=== PATIENT | female | born 1970 | race Caucasian/White ===

== ENCOUNTER 2018-04-16 12:16 | Emergency (ER) | payer OTHER ==
[~2018-04-16] VITALS: Ht 165.1 cm; Wt 94.8 kg
[2018-04-16] MEDS ORDERED: PRILOSEC 10MG C10 MG PO (12:26)
[2018-04-16 12:40] LABS: ABSOLUTE EOSINOPHILS 0.1 thou/uL (0.0-0.7); ABSOLUTE LYMPHOCYTES 1.4 thou/uL (0.8-5.3); ABSOLUTE MONOCYTES 0.7 thou/uL (0.0-1.2); ABSOLUTE NEUTROPHILS 4.7 thou/uL (1.6-8.1); BASOPHILS 0.5 %; HEMATOCRIT 44.1 % (37.0-47.0); HEMOGLOBIN 15.6 gm/dL (12.0-15.0); LYMPHOCYTES 19.7 %; MCH 30.2 pg (26.0-34.0); MCHC 35.3 g/dL (28.0-37.0); MCV 85.7 fL (80.0-100.0); MONOCYTES 10.3 %; MPV 8.4 fl. (7.2-11.1); NUCLEATED RBCS 0 /100WBC; PLATELET COUNT* 217 thou/uL (150-400); POLYS 68.5 %; RBC 5.15 mil/uL (4.20-5.00); RDW-CV 13.6 % (10.5-14.5); WBC 6.9 thou/uL (4.0-11.0)
[2018-04-16 12:43] LABS: URINE BLOOD 1+ (Negative); URINE CLARITY CLEAR; URINE COLOR YELLOW; URINE GLUCOSE-RANDOM NEGATIVE (Negative); URINE KETONES NEGATIVE (Negative); URINE LEUKOCYTES-REFLEX NEGATIVE (Negative); URINE NITRITE-REFLEX NEGATIVE (Negative); URINE PROTEIN TRACE (Negative); URINE SPECIFIC GRAVITY >= 1.030 (1.005-1.030); URINE UROBILINOGEN 0.2 E.U./dl (0.2-1.0)
[2018-04-16 12:47] LABS: ICTOTEST (BILI CONFIRMATORY) Negative (Negative); URINE BILIRUBIN 1+ (Negative)
[2018-04-16 12:48] LABS: CALCIUM 8.9 mg/dL (8.5-10.1); CREATININE 0.7 mg/dL (0.6-1.3); POTASSIUM 3.2 mmol/L (3.5-5.1)
[2018-04-16 12:52] LABS: BACTERIA-REFLEX None Seen /HPF (None Seen); CASTS None Seen /LPF (None Seen); CRYSTALS None Seen /LPF (None Seen); MUCUS 0-3 Light strn/LPF (None Seen); SQUAMOUS 4-10 Moderate /LPF (0-3); URINE RBC 3-10 Few /HPF (0-2); URINE WBC-REFLEX None Seen /HPF (0-5)
[2018-04-16 12:52] LABS: ALBUMIN 4.1 g/dL (3.4-5.0); TOTAL PROTEIN 8.7 g/dL (6.4-8.2)
[2018-04-16] MEDS ORDERED: ZOFRAN ODT4 MG PO (14:29)
[2018-04-16] MEDS ORDERED: LOPERAMIDE 2 MG2 M1 PO (14:29)
[2018-04-16] MEDS ORDERED: HYDROCODONE-AP1 EAC6 PO (14:33)
[2018-04-16 14:43] VITALS: BP 128/73
== END 2018-04-16 14:43 | disposition home or self-care (01) ==
LOC: M.ERS 12:16
PROVIDERS: Physician Assistant
DX: R10.9 Unspecified abdominal pain (principal); Z90.49 Acquired absence of other specified parts of digestive tract; Z88.1 Allergy status to other antibiotic agents

== ENCOUNTER 2019-05-17 17:44 | Emergency (ER) | payer OTHER ==
[~2019-05-17] VITALS: Ht 165.1 cm; Wt 101.6 kg
[~2019-05-17 17:44] MED LIST: HYDROCODONE-AP1 EAC6 PO; LOPERAMIDE 2 MG2 M1 PO; PRILOSEC OTC20 MG PO; ZOFRAN ODT4 MG PO
[2019-05-17] MEDS ORDERED: NORCO 5-325 TA1 EAC1 PO (18:37)
[2019-05-17] MEDS ORDERED: IBUPROFEN 800800 MG PO (18:37)
[2019-05-17 19:17] VITALS: BP 145/70
== END 2019-05-17 19:17 | disposition home or self-care (01) ==
LOC: M.ERS 17:44
DX: S86.011A Strain of right Achilles tendon, initial encounter (principal); Z90.49 Acquired absence of other specified parts of digestive tract; X58.XXXA Exposure to other specified factors, initial encounter; Y93.02 Activity, running; Y92.828 Other wilderness area as the place of occurrence of the external cause; Y99.8 Other external cause status

== ENCOUNTER 2020-09-14 08:33 | Inpatient (IN) | payer OTHER ==
[~2020-09-14] VITALS: Ht 165.1 cm; Wt 103.4 kg
[~2020-09-14 08:33] MED LIST changes: +IBUPROFEN 800800 MG PO; +NORCO 5-325 TA1 EAC1 PO
[2020-09-14 08:49] VITALS: BP 141/69
[2020-09-14 09:51] LABS: ABSOLUTE LYMPHOCYTES 1.4 thou/uL (0.8-5.3); ABSOLUTE MONOCYTES 0.3 thou/uL (0.0-1.2); ABSOLUTE NEUTROPHILS 1.9 thou/uL (1.6-8.1); BASOPHILS 0.4 %; EOSINOPHILS 0.4 %; HEMOGLOBIN 13.7 gm/dL (12.0-15.0); MCH 29.3 pg (26.0-34.0); MCHC 34.2 g/dL (28.0-37.0); MCV 85.7 fL (80.0-100.0); MONOCYTES 7.9 %; NUCLEATED RBCS 0 /100WBC; PLATELET COUNT* 156 thou/uL (150-400); POLYS 53.3 %; RBC 4.68 mil/uL (4.20-5.00); WBC 3.7 thou/uL (4.0-11.0)
[2020-09-14 10:08] LABS: CALCIUM 8.2 mg/dL (8.5-10.1); CREATININE 0.9 mg/dL (0.6-1.3); POTASSIUM 3.3 mmol/L (3.5-5.1)
[2020-09-14 10:10] LABS: APTT 26.8 Seconds (25.0-31.3); PROTIME 10.5 Seconds (9.20-11.50)
[2020-09-14 10:11] LABS: INFLUENZA A ANTIGEN Negative (Negative); INFLUENZA B ANTIGEN Negative (Negative)
[2020-09-14 10:18] LABS: ALBUMIN 3.4 g/dL (3.4-5.0); TOTAL BILIRUBIN 0.7 mg/dL (<0.1-1.0); TOTAL PROTEIN 7.6 g/dL (6.4-8.2)
[2020-09-14 13:26] VITALS: BP 124/63
[2020-09-14 16:29] VITALS: BP 120/60
[2020-09-14 17:16] VITALS: BP 104/45
[2020-09-14 21:44] VITALS: BP 109/56
[2020-09-14 23:03] VITALS: BP 113/61
[2020-09-15 04:00] VITALS: BP 113/62
[2020-09-15 05:16] LABS: HEMATOCRIT 36.2 % (37.0-47.0); HEMOGLOBIN 12.5 gm/dL (12.0-15.0); MCH 29.1 pg (26.0-34.0); MCHC 34.4 g/dL (28.0-37.0); MCV 84.4 fL (80.0-100.0); MPV 8.3 fl. (7.2-11.1); RBC 4.29 mil/uL (4.20-5.00); RDW-CV 13.9 % (10.5-14.5); WBC 3.2 thou/uL (4.0-11.0)
[2020-09-15 05:31] LABS: CALCIUM 7.5 mg/dL (8.5-10.1); CREATININE 0.7 mg/dL (0.6-1.3); MAGNESIUM 1.9 mg/dL (1.8-2.4); POTASSIUM 3.8 mmol/L (3.5-5.1); TOTAL BILIRUBIN 0.5 mg/dL (<0.1-1.0)
[2020-09-15 08:00] VITALS: BP 119/67
--- NOTE | 2020-09-15 09:00 | EKG ---
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: [place] : 1970 Requested By: Santos Barger Order Number: [id number] MD: Rodrick Monroe Measurements Intervals [place] Rate: 83 P: 71 [place]: 156 QRS: 3 QRSD: 102 T: 68 QT: 332 QTc: 390 Interpretive Statements Sinus rhythm Borderline repolarization abnormality Baseline wander in lead(s) I,V3 No previous ECG available for comparison Electronically Signed On 09-15-2020 9:00:22 [employer] by Rodrick Monroe [email or web address] <ELECTRONICALLY SIGNED> By: Kevin Monroe MD, [facility] 09/15/20899 5 5 Kevin Monroe MD, [facility] /EPI
[2020-09-15 12:00] VITALS: BP 110/70
[2020-09-15 12:37] VITALS: BP 120/60; BP 124/66
[2020-09-15 16:00] VITALS: BP 132/60
[2020-09-15 20:00] VITALS: BP 102/65
[2020-09-16] VITALS (7 sets, daily range): BP systolic 110–142; BP diastolic 56–79
[2020-09-17 00:08] VITALS: BP 152/91; BP 162/77
[2020-09-17 04:11] VITALS: BP 140/84
[2020-09-17 08:28] VITALS: BP 134/69
[2020-09-17 12:31] VITALS: BP 129/76
[2020-09-17 16:00] VITALS: BP 128/70
[2020-09-17 19:35] VITALS: BP 132/65
[2020-09-18] VITALS: BP 128/49
[2020-09-18 04:00] VITALS: BP 148/78
[2020-09-18 04:46] LABS: HEMATOCRIT 36.8 % (37.0-47.0); HEMOGLOBIN 12.8 gm/dL (12.0-15.0); MCH 29.2 pg (26.0-34.0); MCHC 34.6 g/dL (28.0-37.0); MCV 84.4 fL (80.0-100.0); MPV 8.3 fl. (7.2-11.1); RBC 4.36 mil/uL (4.20-5.00); RDW-CV 14.2 % (10.5-14.5); WBC 5.9 thou/uL (4.0-11.0)
[2020-09-18 05:17] LABS: ALBUMIN 3.3 g/dL (3.4-5.0); CALCIUM 8.1 mg/dL (8.5-10.1); CREATININE 0.9 mg/dL (0.6-1.3); MAGNESIUM 2.2 mg/dL (1.8-2.4); POTASSIUM 3.3 mmol/L (3.5-5.1); TOTAL BILIRUBIN 0.6 mg/dL (<0.1-1.0); TOTAL PROTEIN 7.4 g/dL (6.4-8.2)
[2020-09-18 08:00] VITALS: BP 142/76
[2020-09-18] MEDS ORDERED: PREDNISONE10 MG PO (09:13)
[2020-09-18] MEDS ORDERED: LEVOFLOXACIN750 MG PO (09:13)
[2020-09-18] MEDS ORDERED: VENTOLIN HFA 1818 GM INH (09:13)
[2020-09-18 11:48] VITALS: BP 136/70
[2020-09-18 13:42] VITALS: BP 142/76
== END 2020-09-18 14:30 | disposition home or self-care (01) | DRG 177 ==
LOC: M.ERS 08:33 → M.TBA-ER 09:26 → M.ORTHSURG 09:26
PROVIDERS: Family Medicine; ADMIT Internal Medicine; ATTEND Internal Medicine
PROC: XW033E5 Introduction of Remdesivir Anti-infective into Peripheral Vein, Percutaneous Approach, New Technology Group 5 (ICD-10-PCS; principal; 2020-09-14)
PROC: XW13325 Transfusion of Convalescent Plasma (Nonautologous) into Peripheral Vein, Percutaneous Approach, New Technology Group 5 (ICD-10-PCS; 2020-09-15)
DX: U07.1 COVID-19 (principal); J96.01 Acute respiratory failure with hypoxia; J12.89 Other viral pneumonia; J15.6 Pneumonia due to other Gram-negative bacteria; J45.901 Unspecified asthma with (acute) exacerbation; K75.9 Inflammatory liver disease, unspecified; K21.9 Gastro-esophageal reflux disease without esophagitis; Z79.899 Other long term (current) drug therapy; Z90.49 Acquired absence of other specified parts of digestive tract; Z88.1 Allergy status to other antibiotic agents; Z82.5 Family history of asthma and other chronic lower respiratory diseases; Z23 Encounter for immunization

== ENCOUNTER → 2021-08-09 | Outpatient (CLI) | payer OTHER ==
[~2021-08-09] MED LIST changes: +LEVOFLOXACIN750 MG PO; +PREDNISONE10 MG PO; +VENTOLIN HFA 1818 GM INH
== END ==
LOC: M.ULTRA 07:04
PROVIDERS: ATTEND Nurse Practitioner Family
DX: K76.0 Fatty (change of) liver, not elsewhere classified (principal); R79.89 Other specified abnormal findings of blood chemistry; R16.0 Hepatomegaly, not elsewhere classified; Z90.49 Acquired absence of other specified parts of digestive tract